=== PATIENT | female | born 2000 | race Caucasian/White ===

== ENCOUNTER 2022-01-01 17:17 | Outpatient (CLI) | payer BC ==
[2022-01-01 20:37] LABS: BASOPHILS # (AUTO) 0.1 10^3/uL (0.0-0.1); BASOPHILS % (AUTO) 0.9 %; EOSINOPHILS # (AUTO) 0.2 10^3/uL (0.0-0.7); EOSINOPHILS % (AUTO) 1.9 %; HCT - HEMATOCRIT 42.5 % (37.0-47.0); HGB - HEMOGLOBIN 14.1 g/dL (12.0-16.0); LYMPHOCYTES # (AUTO) 2.2 10^3/uL (1.5-3.5); LYMPHOCYTES % (AUTO) 26.7 %; MEAN CORPUSCULAR HEMOGLOBIN 29.7 pg (27.0-31.0); MEAN CORPUSCULAR HGB CONC 33.2 g/dL (32.0-36.0); MEAN CORPUSCULAR VOLUME 89.7 fL (81.0-99.0); MEAN PLATELET VOLUME 9.7 fL (7.9-10.8); MONOCYTES # (AUTO) 0.9 10^3/uL (0.0-1.0); MONOCYTES % (AUTO) 11.2 %; NEUTROPHILS # (AUTO) 4.9 10^3/uL (1.5-6.6); NEUTROPHILS % (AUTO) 59.2 %; PLT - PLATELET COUNT 373 10^3/uL (130-450); RED BLOOD COUNT 4.74 10^6/uL (4.20-5.40); WHITE BLOOD COUNT 8.2 x10^3/uL (4.8-10.8)
[2022-01-01 20:49] LABS: ALBUMIN 4.8 g/dL (3.2-5.5); ALBUMIN/GLOBULIN RATIO 1.4 (1.0-2.2); BILIRUBIN,TOTAL 0.6 mg/dL (0.2-1.0); CALCIUM 9.4 mg/dL (8.5-10.3); CREATININE 0.7 mg/dL (0.4-1.0); TOTAL PROTEIN 8.2 g/dL (6.7-8.2)
[2022-01-01 21:07] LABS: THYROID STIMULATING HORMONE 2.89 uIU/mL (0.34-5.60)
== END 2022-01-01 17:18 | disposition home or self-care (01) ==
LOC: LAB.N 17:17
PROVIDERS: ATTEND Physician Assistant
DX: Z79.899 Other long term (current) drug therapy (principal)
CPT/HCPCS: 36415; 80053; 84443; 85025

== ENCOUNTER 2022-01-02 20:39 | Emergency (ER) | payer BC ==
[2022-01-02] MEDS ORDERED: diphenhydrAMINE INJ 50 MG/ML VIAL IVP STA (21:22)
[2022-01-02] MEDS ORDERED: METOCLOPRAMIDE 10 MG/2 ML VIAL IVP STA (21:22)
[2022-01-02] MEDS ORDERED: KETOROLAC 30 MG/ML VIAL IVP STA (21:22)
[2022-01-02] MEDS ORDERED: SODIUM CHLORIDE 0.9% 1,000 ML IV STA (21:22)
--- NOTE | 2022-01-02 22:19 | ED Physician Documentation ---
PD HPI HEADACHE - Stated complaint Stated Complaint: MIGRAINE,JAW PX - Chief complaint Chief Complaint: Neuro - History obtained from History obtained from: Patient - History of Present Illness Timing - onset: Enter time (1400) Timing - details: Gradual onset Worst headache ever?: No: Worst headache ever? Quality: Throbbing, Aching Associated symptoms: No: Fever, Stiff neck Worsened by: Light Contributing factors: No: Anticoagulated - Additional information Additional information: Patient is a 21-year-old female with history of migraine headaches presenting for evaluation of right-sided migraine headache that started around 2 PM while working. Patient works at a computer. Headache started gradually and progressively became worse. She reports associated nausea and vomiting. She has a history of migraine headaches and took her rescue medication, 40 mg of eletriptan Without change in her symptoms.She reports getting migraine headaches several times a month and has in the past required to go to the emergency department 1-2 times per year. This feels like her usual migraines other than it is located on the other side of her head than normal.Nothing makes her symptoms better. No fever, cough or congestion. No chest pain, difficulty breathing or concerns for .Patient denies trauma or head injury. Denies exertion at onset of headache. Headache is sharp and throbbing. Review of Systems Constitutional: denies: Fever Eyes: reports: Photophobia Nose: denies: Congestion Throat: denies: Sore throat Cardiac: denies: Chest pain / pressure Respiratory: denies: Dyspnea GI: reports: Nausea, Vomiting. denies: Abdominal Pain : denies: Dysuria Musculoskeletal: denies: Neck pain, Back pain Neurologic: reports: Headache PD PAST MEDICAL HISTORY - Present Medications Home Medications: Ambulatory Orders Medication Instructions Recorded Confirmed Cetirizine HCl [Allergy] 10 mg PO DAILY 01/02/22 01/02/22 Eletriptan HBr [Relpax] 20 mg PO ONCE PRN 01/02/22 01/02/22 Famotidine [Acid-Pep] 20 mg PO DAILY 01/02/22 01/02/22 Montelukast [Singulair] 10 mg PO DAILY 01/02/22 01/02/22 Venlafaxine ER [Effexor ER] 75 mg PO DAILY 01/02/22 01/02/22 - Allergies Allergies/Adverse Reactions: Allergies Allergy/AdvReac Type Severity Reaction Status Date / Time hydrocodone Allergy Anaphylaxis Verified 01/02/22 20:53 PD ED PE NORMAL - General General: Alert and oriented X 3, No acute distress, Well developed/nourished - HEENT HEENT: Atraumatic, PERRL, EOMI, Moist mucous membranes, Pharynx benign - Neck Neck: Supple, no meningeal sign, No bony TTP - Cardiac Cardiac: RRR, No murmur, Strong equal pulses - Respiratory Respiratory: No respiratory distress, Clear bilaterally - Abdomen Abdomen: Normal bowel sounds, Soft, Non tender, Non distended - Derm Derm: Warm and dry - Extremities Extremities: No edema - Neuro Neuro: Alert and oriented X 3, 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 Head ache is not thunderclap in intensity and did not start with exertion. Neuro exam is normal and no Meningeal signs. I do not suspect subarachnoid hemorrhage, meningitis or other intracranial process. She is overall very well- appearing with stable vital signs. Patient had improvement with migraine cocktail and is comfortable with plan for discharge. 2215 - Patient reports feeling significantly better and would like to go home. She has medications at home including nausea medications and will follow up with her primary care doctor. Departure - Departure Disposition: 01 Home, Self Care Clinical Impression: Migraine Qualifiers: Migraine type: unspecified Status migrainosus presence: without status migrainosus Intractability: not intractable Qualified Code(s): G43.909 - Migraine, unspecified, not intractable, without status migrainosus Condition: Stable Instructions: ED Headache Migraine Follow-Up: Yanet Millan PA-C [Primary Care Provider] - Comments: You were treated for a migraine headache.Please continue to rest and hydrate and utilize the medications you have at home as needed. Please call your primary care doctor for close follow-up and return to the ER if you have any worsening symptoms. Discharge Date/Time: 01/02/22 22:25
[2022-01-02 22:25] VITALS: BP 103/51
== END 2022-01-02 22:25 | disposition home or self-care (01) ==
LOC: ED 20:39
DX: G43.909 Migraine, unspecified, not intractable, without status migrainosus (principal)
CPT/HCPCS: 96374; 99282; 99284; J1200; J2765

== ENCOUNTER 2022-07-30 18:19 | Outpatient (CLI) | payer BC ==
[2022-07-30 18:33] LABS: BASOPHILS # (AUTO) 0.1 10^3/uL (0.0-0.1); BASOPHILS % (AUTO) 0.8 %; EOSINOPHILS # (AUTO) 0.1 10^3/uL (0.0-0.7); EOSINOPHILS % (AUTO) 1.9 %; HGB - HEMOGLOBIN 14.8 g/dL (12.0-16.0); LYMPHOCYTES # (AUTO) 2.7 10^3/uL (1.5-3.5); LYMPHOCYTES % (AUTO) 35.2 %; MEAN CORPUSCULAR HEMOGLOBIN 30.4 pg (27.0-31.0); MEAN CORPUSCULAR HGB CONC 33.6 g/dL (32.0-36.0); MEAN CORPUSCULAR VOLUME 90.3 fL (81.0-99.0); MEAN PLATELET VOLUME 9.2 fL (7.9-10.8); MONOCYTES # (AUTO) 0.7 10^3/uL (0.0-1.0); MONOCYTES % (AUTO) 9.3 %; NEUTROPHILS % (AUTO) 52.5 %; PLT - PLATELET COUNT 317 10^3/uL (130-450); RED BLOOD COUNT 4.87 10^6/uL (4.20-5.40); RED CELL DISTRIBUTION WIDTH 12.7 % (12.0-15.0); WHITE BLOOD COUNT 7.6 x10^3/uL (4.8-10.8)
[2022-07-30 18:49] LABS: ALBUMIN/GLOBULIN RATIO 1.4 (1.0-2.2); BILIRUBIN,TOTAL 0.5 mg/dL (0.2-1.0); CALCIUM 9.6 mg/dL (8.5-10.3); CREATININE 0.7 mg/dL (0.4-1.0); POTASSIUM 3.7 mmol/L (3.5-5.0); TOTAL PROTEIN 8.6 g/dL (6.7-8.2)
[2022-07-30 18:55] LABS: % IRON SATURATION 13 % (20-50); IRON 51 ug/dL (28-170); TOTAL IRON BINDING CAPACITY 382 ug/dL (250-450); TRANSFERRIN 273 mg/dL (192-382)
[2022-07-30 19:05] LABS: THYROID STIMULATING HORMONE 3.77 uIU/mL (0.34-5.60)
[2022-07-30 19:11] LABS: FERRITIN 45.7 ng/mL (11.0-306.8)
== END 2022-07-30 18:20 | disposition home or self-care (01) ==
LOC: LAB 18:19
PROVIDERS: ATTEND Physician Assistant
DX: G43.909 Migraine, unspecified, not intractable, without status migrainosus (principal); R53.83 Other fatigue
CPT/HCPCS: 36415; 80053; 82728; 83540; 84443; 84466; 85025

== ENCOUNTER 2022-11-16 14:21 | Outpatient (CLI) | payer BC | END 2022-11-16 14:22 | disposition home or self-care (01) | LOC: LAB.N 14:21 | PROVIDERS: ATTEND Physician Assistant | DX: Z11.1 Encounter for screening for respiratory tuberculosis (principal) | CPT/HCPCS: 81599; 86480 ==

== ENCOUNTER 2023-05-19 15:57 | Outpatient (CLI) | payer OTHER ==
[2023-05-19 21:59] LABS: THYROID STIMULATING HORMONE 2.52 uIU/mL (0.34-5.60)
== END 2023-05-19 15:58 | disposition home or self-care (01) ==
LOC: LAB.N 15:57
PROVIDERS: ATTEND Physician Assistant
DX: F41.8 Other specified anxiety disorders (principal)
CPT/HCPCS: 36415; 82306; 84443

== ENCOUNTER 2023-07-24 08:00 | Outpatient (CLI) | payer OTHER ==
[2023-07-24 23:12] LABS: CHLAMYDIA TRACHOMATIS DNA NEGATIVE (NEGATIVE); NEISSERIA GONORRHOEAE DNA NEGATIVE (NEGATIVE); TRICHOMONAS VAGINALIS DNA NEGATIVE (NEGATIVE)
== END 2023-07-24 23:59 | disposition home or self-care (01) ==
LOC: LAB.WC 08:00
PROVIDERS: ATTEND Nurse Practitioner
DX: Z11.3 Encounter for screening for infections with a predominantly sexual mode of transmission (principal)
CPT/HCPCS: 87491; 87591; 87661

== ENCOUNTER 2023-08-02 13:54 | Outpatient (CLI) | payer OTHER ==
[2023-08-02 14:57] LABS: RHEUMATOID FACTOR NEGATIVE (Negative)
--- NOTE | 2023-08-02 17:43 | XRAY Report ---
PROCEDURE: Lumbar Spine 2-3V INDICATIONS: LOW BACK PAIN,CHRONIC TECHNIQUE: 3 views of the lumbar spine were acquired. COMPARISON: None. FINDINGS: Bones: 5 [id number] vertebrae are present. There is normal bony alignment. No vertebral body compression fractures. No suspicious bony lesions. Minimal disc and foraminal narrowing at L5-S1. Soft tissues: Overlying bowel gas pattern is normal. No suspicious soft tissue calcifications. IMPRESSION: Minimal disc and foraminal narrowing at L5-S1. Reviewed by: Elizabeth Quintero MD on 08/02/2023 5:42 PM PDT Approved by: Elizabeth Quintero MD on 08/02/2023 5:42 PM PDT Station ID: [id number]
--- NOTE | 2023-08-02 17:46 | XRAY Report ---
PROCEDURE: Cervical Spine 2-3V INDICATIONS: NECK PAIN,CHRONIC TECHNIQUE: 3 view(s) of the cervical spine were acquired. COMPARISON: None. FINDINGS: Bones: No fractures or dislocations to the C7-T1 level. The lateral masses of C1 appear intact on t he odontoid view. No suspicious bony lesions. Mild cervical straightening. Soft tissues: No prevertebral soft tissue swelling. IMPRESSION: Mild cervical straightening. Reviewed by: Elizabeth Quintero MD on 08/02/2023 5:45 PM PDT Approved by: Elizabeth Quintero MD on 08/02/2023 5:45 PM PDT Station ID: [id number]
[2023-08-05 18:07] LABS: ANTI-DNA (DS) AB QN 2 IU/mL (0-9)
== END 2023-08-02 13:55 | disposition home or self-care (01) ==
LOC: DI 13:54
PROVIDERS: ATTEND Physician Assistant Medical
DX: M54.2 Cervicalgia (principal); M54.50 Low back pain, unspecified; G89.29 Other chronic pain; M25.50 Pain in unspecified joint; M48.061 Spinal stenosis, lumbar region without neurogenic claudication
CPT/HCPCS: 36415; 85651; 86038; 86140; 86200; 86225; 86430

== ENCOUNTER 2023-10-04 10:08 | Outpatient (CLI) | payer OTHER ==
--- NOTE | 2023-10-04 16:18 | XRAY Report ---
PROCEDURE: Hip w/Pelvis 2-3V RT INDICATIONS: PAIN IN RIGHT HIP TECHNIQUE: 2 views of the hip were acquired. COMPARISON: None. FINDINGS: Bones: No fractures or dislocations. No suspicious bony lesions. There is sacralization on the ri ght side at L5-S1. Soft tissues: No suspicious soft tissue calcifications or masses. A 90 is projected over the pelvis. IMPRESSION: No acute bony abnormality. If there remains a high clinical concern for fracture, consider cross-sect ional imaging now. If pain persists, consider repeat x-ray in 10-14 days or cross-sectional imaging. Sacralization at L5-S1 on the right. Reviewed by: Diana Mann MD on 10/04/2023 4:17 PM PDT Approved by: iDana Mann MD on 10/04/2023 4:17 PM PDT Station ID: [id number]
== END 2023-10-04 10:09 | disposition home or self-care (01) ==
LOC: DI 10:08
PROVIDERS: ATTEND Physician Assistant Medical
DX: M25.551 Pain in right hip (principal); E55.9 Vitamin D deficiency, unspecified
CPT/HCPCS: 36415; 82306

== ENCOUNTER 2023-10-04 10:11 | Outpatient (CLI) | payer OTHER | END 2023-10-04 10:12 | disposition home or self-care (01) | LOC: LAB 10:11 | PROVIDERS: ATTEND Physician Assistant | DX: E55.9 Vitamin D deficiency, unspecified (principal) | CPT/HCPCS: 36415; 82306 ==

== ENCOUNTER 2024-01-07 14:11 | Outpatient (CLI) | payer OTHER ==
[2024-01-07 14:31] LABS: BASOPHILS # (AUTO) 0.1 10^3/uL (0.0-0.1); BASOPHILS % (AUTO) 0.9 %; EOSINOPHILS # (AUTO) 0.2 10^3/uL (0.0-0.7); EOSINOPHILS % (AUTO) 2.3 %; HCT - HEMATOCRIT 45.7 % (37.0-47.0); LYMPHOCYTES # (AUTO) 2.2 10^3/uL (1.5-3.5); LYMPHOCYTES % (AUTO) 29.3 %; MEAN CORPUSCULAR HEMOGLOBIN 30.5 pg (27.0-31.0); MEAN CORPUSCULAR HGB CONC 32.8 g/dL (32.0-36.0); MEAN CORPUSCULAR VOLUME 93.1 fL (81.0-99.0); MEAN PLATELET VOLUME 8.8 fL (7.9-10.8); MONOCYTES # (AUTO) 0.7 10^3/uL (0.0-1.0); MONOCYTES % (AUTO) 8.8 %; NEUTROPHILS # (AUTO) 4.3 10^3/uL (1.5-6.6); NEUTROPHILS % (AUTO) 58.4 %; PLT - PLATELET COUNT 341 10^3/uL (130-450); RED BLOOD COUNT 4.91 10^6/uL (4.20-5.40); RED CELL DISTRIBUTION WIDTH 12.6 % (12.0-15.0); WHITE BLOOD COUNT 7.4 x10^3/uL (4.8-10.8)
[2024-01-07 14:46] LABS: ALBUMIN 4.9 g/dL (3.2-5.5); ALBUMIN/GLOBULIN RATIO 1.9 (1.0-2.2); BILIRUBIN,TOTAL 0.5 mg/dL (0.2-1.0); CALCIUM 9.8 mg/dL (8.5-10.3); CREATININE 0.7 mg/dL (0.6-1.3); MAGNESIUM 1.9 mg/dL (1.7-2.3); PHOSPHORUS 2.9 mg/dL (2.5-5.0); POTASSIUM 3.7 mmol/L (3.5-4.5); TOTAL PROTEIN 7.5 g/dL (6.4-8.9)
== END 2024-01-07 14:12 | disposition home or self-care (01) ==
LOC: LAB 14:11
PROVIDERS: ATTEND Physician Assistant Medical
DX: R00.2 Palpitations (principal)
CPT/HCPCS: 36415; 80053; 83735; 84100; 85025